=== PATIENT | female | born 2000 | race Caucasian/White ===

== ENCOUNTER 2024-05-12 16:51 | Outpatient (REF) | payer BC, SELFPAY ==
[2024-05-12 15:33] LABS: Abs Immature Grans 0.01 10^3/uL (0.0-0.06); Absolute Basophil Count 0.02 10^3/uL (0.0-0.2); Absolute Eosinophil Count 0.01 10^3/uL (0.0-0.7); Absolute Lymphocyte Count 1.43 10^3/uL (1.2-3.4); Absolute Monocyte Count 0.31 10^3/uL (0.1-0.8); Absolute Neutrophil Count 7.27 10^3/uL (1.2-6.7); Basophils % 0.2 %; Eosinophils % 0.1 %; HCT 34.1 % (36.0-46.0); Immature Grans % 0.1 %; Lymphocytes % 15.8 %; MCH 26.4 pg (27.0-33.0); MCHC 32.3 % (32.0-36.0); MCV 82 fL (80-95); MPV 9.4 fL (8.0-11.0); Monocytes % 3.4 %; Neutrophils % 80.4 %; Platelet Count 500 10^3/uL (130-400); RBC 4.16 10^6/uL (3.93-5.22); RDW 14.4 % (11.7-14.6); RDW-SD 42.3 fL; WBC 9.05 10^3/uL (4.4-10.8)
[2024-05-12 16:21] LABS: ALT 17 U/L (14-59); AST 17 U/L (15-37); Albumin 3.9 g/dL (3.4-5.0); Alkaline Phosphatase 98 U/L (46-116); Anion Gap 11.6 mmol/L (3-11); BUN 8 mg/dL (7-18); Bilirubin, Total 0.45 mg/dL (0.2-1.0); CO2 27.4 mmol/L (21.0-32.0); CREATININE 0.6 mg/dL (0.55-1.02); Calcium 9.2 mg/dL (8.5-10.1); Chloride 105 mmol/L (98-107); Estimated GFR 127.67 (mL/min/1.73m2); Ferritin 22 ng/mL (8-252); Glucose 89 mg/dL (74-106); Magnesium 2.2 mg/dL (1.8-2.4); Sodium 144 mmol/L (136-145); Total Protein 7.2 g/dL (6.4-8.2)
== END 2024-05-12 16:52 | disposition home or self-care (01) ==
LOC: LBN 16:51
PROVIDERS: Visit Provider Nurse Practitioner Family
DX: R25.2 Cramp and spasm (principal); N92.0 Excessive and frequent menstruation with regular cycle
CPT/HCPCS: 80053; 82728; 83735; 85025

== ENCOUNTER 2024-05-13 22:44 | Emergency (ER) | payer BC, SELFPAY ==
[2024-05-13 22:55] VITALS: BP 149/102; PULSE 84; RESP 16; TEMP 36.5; O2SAT 99
[2024-05-13] MEDS: diazePAM 10 MG/2 ML SYR 5 MG IVP (23:30)
[2024-05-13] MEDS: methylPREDNISolone SUCC 125 MG VIAL IVP (23:30)
[2024-05-13 23:56] LABS: ALT 20 U/L (14-59); AST 14 U/L (15-37); Alkaline Phosphatase 100 U/L (46-116); Anion Gap 13.9 mmol/L (3-11); BUN 13 mg/dL (7-18); Bilirubin, Total 0.56 mg/dL (0.2-1.0); CO2 24.1 mmol/L (21.0-32.0); CREATININE 0.8 mg/dL (0.55-1.02); Calcium 9.7 mg/dL (8.5-10.1); Chloride 102 mmol/L (98-107); Creatine Kinase 43 U/L (26-192); Glucose 134 mg/dL (74-106); Potassium 3.7 mmol/L (3.5-5.1); Sodium 140 mmol/L (136-145); Total Protein 8.1 g/dL (6.4-8.2)
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
[2024-05-14] MEDS: Cyclobenzaprine 10 MG TAB PO (05:01)
[2024-05-14 05:03] VITALS: BP 149/78; PULSE 77; RESP 16; TEMP 36.8; O2SAT 98
--- NOTE | 2024-05-14 08:23 | NUR.NOTE ---
Nursing Note: Received call from Pt that her prescriptions were not received by [facility] in [facility]. Discharge paperwork reviewed and showed they were sent to [facility] in [facility], this is not where patient picks up her medications. Prescription called in verbally to Pharmacist Josh @ [facility], pt aware
== END 2024-05-14 05:23 | disposition home or self-care (01) ==
LOC: ER 05-14 05:22
PROVIDERS: Emergency Provider Student in an Organized Health Care Education/Training Program
DX: M62.838 Other muscle spasm (principal); M54.30 Sciatica, unspecified side; N39.0 Urinary tract infection, site not specified
CPT/HCPCS: 36415; 80053; 82550; 96374; 96375; 99284; 99283; J2919; J3360

== ENCOUNTER 2024-05-14 19:51 | Emergency (ER) | payer BC, SELFPAY ==
[2024-05-14 19:53] VITALS: BP 141/93; PULSE 100; RESP 18; TEMP 36.4; O2SAT 96
--- NOTE | 2024-05-14 19:58 | W.EDPROG ---
Date of service: 05/14/24 Time of Service: 19:58 Medical Decision Making I initially signed up to participate in this patient's care but I did not see her nor evaluate her during her emergency department stay. Quality:SDOH Health Related Social Needs: No Data to Display Discharge Plan Discharge Details Primary Care Provider: None,None ED Provider: Provider,Temporary Home Meds and New Rx's Prescriptions: No Action cyclobenzaprine 10 mg tablet 10 mg PO TID Qty: 14 0RF prednisone 50 mg tablet 50 mg PO DAILY Qty: 5 0RF
--- NOTE | 2024-05-14 20:00 | DI.RAD_ITS ---
Exam(s) XR ABD FLAT UPRIGHT PA CHEST EXAM: XR ABD FLAT UPRIGHT PA CHEST CLINICAL HISTORY: Constipation. TECHNIQUE: 2D digital imaging was performed. COMPARISON: No exams were available for comparison FINDINGS: 3 views Chest x-ray: Heart size normal. Mediastinum not widened. No infiltrates nor pleural effusions. Abdomen-two views: There is abundant fecal material noted in the colon and rectum and there is air tr apping/distension in the splenic flexure the colon subjacent to the left hemidiaphragm. There is no free intraperitoneal air. IMPRESSION: Large amount of fecal material throughout the colon. Air trapping in the splenic flexure of the colo n subjacent to the left hemidiaphragm. No significant findings in the chest. DATA REPOSITORY: RADIATION DOSE DELIVERED:
--- NOTE | 2024-05-14 20:13 | DI.RAD_ITS ---
Exam(s) XR LUMBAR SPINE COMPLETE EXAM: XR LUMBAR SPINE COMPLETE CLINICAL HISTORY: Constipation, muscle spasms in lower back. TECHNIQUE: 2D digital imaging was performed. COMPARISON: No exams were available for comparison FINDINGS: Five views There is transitional anatomy. There are 6 non rib-bearing lumbar vertebrae. Spina bifida occulta i s noted the lower most these vertebrae. No evidence of fracture or listhesis. No pars defects. No significant disc space narrowing. Bone d ensity normal. No osseous lesions. Facet joints appear unremarkable at all levels. Sacroiliac join ts appear unremarkable. IMPRESSION: Transitional lumbosacral anatomy, as described above. However, no acute osseous findings in the lumb osacral spine. Incidentally noted is a large amount of fecal material in the rectum colon and distended colon bowel loops. DATA REPOSITORY: RADIATION DOSE DELIVERED:
--- NOTE | 2024-05-14 20:14 | W.ED.GENAD ---
Discharge Plan Disposition Patient Disposition: Home Condition: Stable Discharge Details Clinical Impression: Constipation, Fecal impaction Primary Care Provider: None,None ED Provider: Fela Leon Home Meds and New Rx's Prescriptions: New peg 3350-electrolytes [Golytely] 236-22.74-6.74 -5.86 gram recon soln 240 ml PO .q 30 min 1 Days Qty: 4000 0RF Rx Instructions: Take until BM produced No Action cyclobenzaprine 10 mg tablet 10 mg PO TID Qty: 14 0RF prednisone 50 mg tablet 50 mg PO DAILY Qty: 5 0RF Discharge Instructions Instructions: Fecal Impaction (DC), Constipation, Adult ED Additional Instructions: You have severe stool impaction on the x-rays. Continue to take miralax daily. Attempt fleets enemas and glycerin suppositories daily as needed. Return or follow up with PCP if no Bowel Movement in 2-3 days. You may also try Colace or Docusate sodium which you can get over the counter. Increase oral fluids, try prunes or warm prune juice. Increase physical activity. Fill the prescription for the Go-lytley if no BM in 24 hours. Stop the iron supplements until bowel movement produced. Follow up with primary care provider in 3-5 days. Return to ED sooner if any worsening or concerns. Referrals: [facility] [Provider Group] - 3 days Primary Care Provider [Outside] - 3 days HPI General Mode of arrival: ambulatory. Date/Time Provider Initiated Documentation: 05/14/24 19:53. Limitations to Documentation: no limitations. Information obtained by: patient, RN notes reviewed and old records reviewed. HPI Narrative: 23-year-old female presents to the ER after being seen here yesterday for muscle spasms. Patient reports that her muscle spasms in her legs has improved with the medications previously prescribed of Flexeril and prednisone. She now reports constipation. At her visit 24 hours ago she was having urinary retention however she was able to urinate multiple times at home after being discharged. She reports her last normal bowel movement was 2 or 3 days ago. She does feel bloated. She states that she has tried a fleets enema and MiraLAX at home with little to no relief. She does report feeling of stool at her rectum. Denies any nausea vomiting back pain or any other associated symptoms. Patient reports that she does have a history of constipation but not like this. Related Data Home Medications ?Medication ?Instructions ?Recorded ?Confirmed cyclobenzaprine 10 mg tablet 10 mg PO TID #14 tabs 05/14/24 05/14/24 peg 3350-electrolytes 236 240 ml PO .q 30 min Constipation 1 05/14/24 gram-22.74 gram-6.74 gram-5.86 day #4,000 mL gram solution (Golytely) prednisone 50 mg tablet 50 mg PO DAILY #5 tabs 05/14/24 05/14/24 Previous Rx's ?Medication ?Instructions ?Recorded cyclobenzaprine 10 mg tablet 10 mg PO TID #14 tabs 05/14/24 peg 3350-electrolytes 236 240 ml PO .q 30 min Constipation 1 05/14/24 gram-22.74 gram-6.74 gram-5.86 day #4,000 mL gram solution (Golytely) prednisone 50 mg tablet 50 mg PO DAILY #5 tabs 05/14/24 Allergies Allergy/AdvReac Type Severity Reaction Status Date / Time No Known Allergies Allergy Unverified 05/13/24 23:06 General Stated Complaint: GenMedical ROSA ISELA: 3 Review of Systems All systems reviewed & are unremarkable except as noted in HPI and below Gastrointestinal Gastrointestinal: Reports bloating and Reports constipation Musculoskeletal Musculoskeletal: Reports abnormal gait, Denies back pain and Reports muscle weakness Neurologic Neurologic: Reports abnormal gait Exam Narrative Exam Narrative: Constitutional: Alert and oriented x3. Appears stated age. Normal body habitus. Head: Normocephalic, no trauma. Eyes: Pupils PERRL, Red reflex noted, EOM's intact. Eyelids symmetrical without lesions, discharge, or swelling. Chest: RRR, Normal S1, S2, distal pulses intact. Resp: Lungs clear to auscultation bilaterally, no wheezes, rales, or rhonchi. Abdomen: Distended Musculoskeletal: Normal gait, Moves all 4 extremities without difficulty. Skin: No suspicious rashes or lesions. Capillary refill less than 2 sec. Neurologic: Cranial nerves II-XII intact. Alert and oriented x 3. Motor: No deficits noted. Sensory: Intact bilaterally all 4 extremities. Hematologic/Lymphatic: No ecchymosis, no lymphadenopathy. Course Vital Signs Vital signs: Vital Signs Temperature 36.4 C 05/14/24 19:53 Pulse 100 H 05/14/24 19:53 Respiratory Rate 18 05/14/24 19:53 Blood Pressure 141/93 H 05/14/24 19:53 Pulse Oximetry 96 05/14/24 19:53 Temperature 36.4 C 05/14/24 19:53 Temperature Source Temporal Artery Scan 05/14/24 19:53 Pulse 100 H 05/14/24 19:53 Respiratory Rate 18 05/14/24 19:53 Blood Pressure 141/93 H 05/14/24 19:53 Pulse Oximetry 96 05/14/24 19:53 Pain Level 6 05/14/24 19:53 Medical Decision Making 23-year-old female presents to the ER after being seen here yesterday for muscle spasms. Patient reports that her muscle spasms in her legs has improved with the medications previously prescribed of Flexeril and prednisone. She now reports constipation. At her visit 24 hours ago she was having urinary retention however she was able to urinate multiple times at home after being discharged. She reports her last normal bowel movement was 2 or 3 days ago. She does feel bloated. She states that she has tried a fleets enema and MiraLAX at home with little to no relief. She does report feeling of stool at her rectum. Denies any nausea vomiting back pain or any other associated symptoms. Patient reports that she does have a history of constipation but not like this. X-ray abdomen and L-spine ordered, glycerin suppository, will consider soap suds enema and CT if needed. X-ray shows severe constipation see official report. Soapsuds enema ordered. RN at for disimpaction and enema administration, large amount of hard dry stool evacuated, there is still a large amount of stool, patient on commode at this time. Patient reports she feels much better after the treatment. RN able to disimpact a small amount more, will send patient home with instructions for miralax, and send home with magnesium citrate, with instructions on glycerin suppositories, Colace and home care. Prescription given for Go-lytely if no BM produced in 24 hours. This text was generated using [employer] system, please disregard any oddities of phrase or misspellings. Medical Records Medical records reviewed: Yes I reviewed the patient's medical records. Lab Data Lab results reviewed: Yes I reviewed the patient's lab results. Labs: TECHNIQUE: Imaging protocol: Radiologic exam of the lumbosacral spine. Views: 4 or 5 views. COMPARISON: CR XR ABD FLAT UPRIGHT PA CHEST 05/14/2024 8:51 PM FINDINGS: Bones/joints: Normal. No acute fracture. Normal alignment. Soft tissues: Unremarkable. Gastrointestinal tract: Large amount of stool throughout colon and rectum with markedly distended sigmoid colon measuring up to 16 cm, developing bowel obstruction cannot be excluded. CT of the abdomen and pelvis may be helpful in further evaluation, if deemed clinically necessary. IMPRESSION: Large amount of stool throughout colon and rectum with markedly distended sigmoid colon measuring up to 16 cm, developing bowel obstruction cannot be excluded. CT of the abdomen and pelvis may be helpful in further evaluation, if deemed clinically necessary. Thank you for allowing us to participate in the care of your patient. Dictated and Authenticated by: Cynthia Moran MD [facility] protocol: Radiologic exam. Complete acute abdomen series, including 2 or more views of the abdomen and a single view chest. COMPARISON: No relevant prior studies available. FINDINGS: Lungs: Normal. No consolidation. Pleural spaces: Normal. No pleural effusions. No pneumothorax. Heart/Mediastinum: Normal. No cardiomegaly. Gastrointestinal tract: Large amount of stool throughout the colon and rectum. Intraperitoneal space: Normal. No free air. Bones/joints: Normal. No acute fracture. Soft tissues: Normal. IMPRESSION: Large amount of stool throughout the colon and rectum correlate for constipation. Thank you for allowing us to participate in the care of your patient. Dictated and Authenticated by: Cynthia Moran MD Quality:SDOH Health Related Social Needs: No Data to Display PFSH All Active Problems (Updated 05/14/24 @ 22:29 by Fela Leon NP) Fecal impaction (Acute) Constipation (Acute) Acute urinary retention (Acute) Sciatica (Acute) Muscle spasm of both lower legs (Acute) Social History Smoking risk assessment performed?: No
[2024-05-14 20:39] VITALS: RESP 16
[2024-05-14] MEDS: Glycerin Adult Suppository JAR 1 SUPP PR (21:08)
--- NOTE | 2024-05-14 21:30 | DI.VRAD_ITS ---
PROCEDURE INFORMATION: Exam: XR Complete Acute Abdomen Series Including Chest Exam date and time: 05/14/2024 8:51 PM Age: 23 years old Clinical indication: Constipation; Additional info: Constipation, muscle spasms in lower back TECHNIQUE: Imaging protocol: Radiologic exam. Complete acute abdomen series, including 2 or more views of the abdomen and a single view chest. COMPARISON: No relevant prior studies available. FINDINGS: Lungs: Normal. No consolidation. Pleural spaces: Normal. No pleural effusions. No pneumothorax. Heart/Mediastinum: Normal. No cardiomegaly. Gastrointestinal tract: Large amount of stool throughout the colon and rectum. Intraperitoneal space: Normal. No free air. Bones/joints: Normal. No acute fracture. Soft tissues: Normal. IMPRESSION: Large amount of stool throughout the colon and rectum correlate for constipation. Dictated and Authenticated by: Cynthia Moran MD. Ordering:JESU Chahal MD
--- NOTE | 2024-05-14 21:32 | DI.VRAD_ITS ---
PROCEDURE INFORMATION: Exam: XR Lumbosacral Spine Exam date and time: 05/14/2024 8:55 PM Age: 23 years old Clinical indication: Low back pain; Additional info: Constipation, muscle spasms in lower back TECHNIQUE: Imaging protocol: Radiologic exam of the lumbosacral spine. Views: 4 or 5 views. COMPARISON: CR XR ABD FLAT UPRIGHT PA CHEST 05/14/2024 8:51 PM FINDINGS: Bones/joints: Normal. No acute fracture. Normal alignment. Soft tissues: Unremarkable. Gastrointestinal tract: Large amount of stool throughout colon and rectum with markedly distended sigmoid colon measuring up to 16 cm, developing bowel obstruction cannot be excluded. CT of the abdomen and pelvis may be helpful in further evaluation, if deemed clinically necessary. IMPRESSION: Large amount of stool throughout colon and rectum with markedly distended sigmoid colon measuring up to 16 cm, developing bowel obstruction cannot be excluded. CT of the abdomen and pelvis may be helpful in further evaluation, if deemed clinically necessary. Dictated and Authenticated by: Cynthia Moran MD. Ordering:JESU Chahal MD
[2024-05-14] MEDS: Magnesium Citrate 300 ML BTL PO (22:34)
[2024-05-14 22:42] VITALS: BP 127/75; PULSE 78; RESP 16; TEMP 36.4; O2SAT 99
--- NOTE | 2024-05-14 22:43 | NUR.NOTE ---
Nursing Note: Post disimpaction x 2 and attempt of soaps suds enema and glycerin suppository pt states she feels '1000 times better'. Educated pt on other home methods/remedies. Instructed pt to return to ER if needed and to follow up PCP.
--- NOTE | 2024-05-15 15:51 | W.ED.FU ---
Date of service: 05/15/24 Time of Service: 15:51 Follow Up Plan: Call made to patient to follow up on status, no answer, voice mail left.
--- NOTE | 2024-05-21 21:02 | NUR.NOTE ---
Pt called in returning a phone call.
== END 2024-05-14 22:44 | disposition home or self-care (01) ==
PROVIDERS: Emergency Provider Registered Nurse Emergency
DX: K59.00 Constipation, unspecified (principal); K56.41 Fecal impaction; Q76.0 Spina bifida occulta
CPT/HCPCS: 00123; 99283; 72110; 74022

== ENCOUNTER 2024-10-08 20:13 | Emergency (ER) | payer BC, SELFPAY ==
[2024-10-08 20:15] VITALS: BP 128/84; PULSE 113; TEMP 36.3; O2SAT 97
--- NOTE | 2024-10-08 20:32 | W.ED.GENAD ---
Discharge Plan Disposition Patient Disposition: Home Condition: Stable Discharge Details Clinical Impression: Fecal impaction in rectum Primary Care Provider: Kristy Berrios ED Provider: Fela Leon Home Meds and New Rx's Prescriptions: No Action ibuprofen 200 mg capsule 200 mg PO Q6H PRN Excedrin Tension Headache 500-65 mg tablet 1 tab PO Q12H PRN cyclobenzaprine 10 mg tablet 10 mg PO TID Qty: 14 0RF Discharge Instructions Instructions: Fecal Impaction (DC) Additional Instructions: Please take a stool softener such as Colace once a day for the next 3 to 5 days. Increase oral fluids. You may try prune juice or prunes, you may also try MiraLAX which is a gentle laxative which she can get [id number]. If no bowel movement in the next couple days please use the fleets enema as directed. Warm sitz bath's. Please take Tylenol or Ibuprofen with food every 4-6 hours as needed for pain and swelling. Stay away from bananas rice apples and toast. Stay away from cheese. If you still do not have a bowel movement with the above measures such as fleets enema and glycerin suppository, MiraLAX and you may drink half a bottle of magnesium citrate wait to see if it produces a bowel movement in the drink the other half. Referrals: Kristy Beriros NP [Primary Care Provider] - 5 days HPI General Mode of arrival: ambulatory. Date/Time Provider Initiated Documentation: 10/08/24 20:26. Limitations to Documentation: no limitations. Information obtained by: patient, RN notes reviewed and old records reviewed. HPI Narrative: 24 year old female presents to the ER with a chief complaint of no bowel movement for the last 2 weeks. He reports to event staff that she did not try anything at home however she does report to me that she has tried enemas with no relief and that magnesium stuff. Does report some nausea no vomiting. Related Data Home Medications ?Medication ?Instructions ?Recorded ?Confirmed cyclobenzaprine 10 mg tablet 10 mg PO TID #14 tabs 05/14/24 10/08/24 acetaminophen-caffeine 500 mg-65 1 tab PO Q12H PRN 08/06/24 10/08/24 mg tablet (Excedrin Tension Headache) ibuprofen 200 mg capsule 200 mg PO Q6H PRN 08/06/24 10/08/24 Previous Rx's ?Medication ?Instructions ?Recorded cyclobenzaprine 10 mg tablet 10 mg PO TID #14 tabs 05/14/24 Allergies Allergy/AdvReac Type Severity Reaction Status Date / Time No Known Allergies Allergy Unverified 10/08/24 20:25 General Stated Complaint: Abd Prob ROSA ISELA: 3 Review of Systems All systems reviewed & are unremarkable except as noted in HPI and below Gastrointestinal Gastrointestinal: Reports constipation Exam Narrative Exam Narrative: Constitutional: Alert and oriented x3. Appears stated age. Normal body habitus. Head: Normocephalic, no trauma. Eyes: Pupils PERRL, Red reflex noted, EOM's intact. Eyelids symmetrical without lesions, discharge, or swelling. Chest: RRR, Normal S1, S2, distal pulses intact. Resp: Lungs clear to auscultation bilaterally, no wheezes, rales, or rhonchi. Abdomen: Soft, non-distended, Normoactive bowel sounds all 4 quads. Musculoskeletal: Normal gait, Moves all 4 extremities without difficulty. Skin: No suspicious rashes or lesions. Capillary refill less than 2 sec. Neurologic: Cranial nerves II-XII intact. Alert and oriented x 3. Motor: No deficits noted. Hematologic/Lymphatic: No ecchymosis, no lymphadenopathy. Course Vital Signs Vital signs: Vital Signs Temperature 36.3 C L 10/08/24 20:15 Pulse 113 H 10/08/24 20:15 Blood Pressure 128/84 10/08/24 20:15 Pulse Oximetry 97 10/08/24 20:15 Temperature 36.3 C L 10/08/24 20:15 Pulse 113 H 10/08/24 20:15 Blood Pressure 128/84 10/08/24 20:15 Pulse Oximetry 97 10/08/24 20:15 Oxygen Delivery Method Room Air 10/08/24 20:15 Oxygen Flow Rate 0 10/08/24 20:15 Pain Level 6 10/08/24 20:15 Procedure Rectal Dismpaction Date of Procedure: 10/08/24 Time of procedure: 21:22 Provider that performed the procedure: Fela Leon Indication: fecal impaction Standard Time Out Performed: No Patient Consented: Verbally Technique: manual disimpaction with gloved finger Result: significant stool output Patient Tolerated Procedure: well Complications: none and bleeding (Mild amount mixed with stool) Procedure Description/Note: Rectal disimpaction performed did have a large ball of dry stool right at the rectum. Patient reports that she had relief of pain and pressure after the disimpaction. I did have her go sit on the toilet and try to have a bowel movement. Medical Decision Making 24 year old female presents to the ER with a chief complaint of no bowel movement for the last 2 weeks. He reports to event staff that she did not try anything at home however she does report to me that she has tried enemas with no relief and that magnesium stuff. Does report some nausea no vomiting. Soapsuds enema ordered. Patient is refusing the enema. Will examine her and attempt disimpaction. Rectal disimpaction performed patient reports improvement of symptoms. Patient has a large ball of dry stool at the rectal opening. Will send home with glycerin suppository mag citrate and a fleets enema. Will also instruct patient to take a Colace p.o. once a day for the next 5 to 7 days as needed for constipation. This text was generated using [employer] system, please disregard any oddities of phrase or misspellings. Quality:SDOH Health Related Social Needs: Health related social needs transportation insecurity (Z59.82), problems related to housing/economic circumstances (Z59.89) PFSH All Active Problems (Updated 10/08/24 @ 21:28 by Fela Leon NP) Fecal impaction in rectum (Acute) Overweight (Acute) Pinched nerve (Acute) Executive function deficit (Acute) Migraine (Chronic) Hypermobility syndrome (Acute) Dizziness on standing (Acute) and with exercise Achilles tendonitis (Acute) Medical History Plantar fasciitis Cleft lip Surgical History S/P pilonidal cyst excision (~03/2015) Family History Mother Depression Father Heart disease Sister Asthma Depression Maternal Grandfather Cancer Paternal Grandmother Breast cancer Paternal Grandfather Diabetes Heart disease Stroke Maternal Grandmother No problems noted. Social History Smoking/Tobacco Use Status: Never Second Hand Exposure: No Smoking risk assessment performed?: Yes Alcohol Intake: current Alcohol Intake frequency: holidays/special occasions only Alcohol type: beer and wine Drug use: Never Substance use type: does not use Adopted: No Caregiver/Support person: No Household members: significant other Housing: apartment Number of Children: 0 number of grandchildren: 0 Communication Needs: None Education Level: college Details: graduate school Do you need help understanding health information?: Rarely current occupation: Meterologist Sexually active: No Do you think of yourself as: Queer Current gender identity: female What is your relationship status?: living with partner How often do you talk on the phone with friends or family?: once per week How often do you get together with friends or relatives?: once per week How often do you attend mosque or methodist services?: decline to answer Do you belong to any clubs or organized social groups?: yes Panel score (0-1 are the most socially isolated patients): 2 NHANES result reviewed/action taken: Yes What type of physical activity do you participate in: walking and other Details: hiking Duration: 30-45 minutes/day Frequency: 3-4 times per week Eli/Pentecostalism: Non evangelical Special eli needs: No Seatbelt use: always Helmet use: Yes Helmet use: sometimes Drive intox or ride w/intox garbage collector driver: No Firearms in home: No Do you feel safe at home: Yes Do you feel safe in your relationship?: Yes Would you like helpful sources: No
[2024-10-08] MEDS: Magnesium Citrate 300 ML BTL PO (21:30)
[2024-10-08] MEDS: Na Phosphate Enema-Adult 133 ML BTL PR (21:30)
[2024-10-08] MEDS: Glycerin Adult Suppository JAR 1 SUPP PR (21:31)
== END 2024-10-08 21:35 | disposition home or self-care (01) ==
PROVIDERS: Emergency Provider Registered Nurse Emergency; PCP Nurse Practitioner Family
DX: K56.41 Fecal impaction (principal)
CPT/HCPCS: 99283